=== PATIENT | female | born 1940 | race Caucasian/White ===

== ENCOUNTER 2022-08-04 14:12 | Outpatient (CLI) | payer MEDICARE, BC, SELFPAY ==
[2022-08-04 17:28] LABS: Albumin* 4.3 g/dL (3.3-5.0); Chloride* 102 mmol/L (96-114)
[2022-08-04 17:29] LABS: Potassium* 4.1 mmol/L (3.6-5.1); Sodium* 138 mmol/L (135-149)
[2022-08-04 17:31] LABS: Alanine Aminotransferase* 17 U/L (4-35); Alkaline Phosphatase* 81 U/L (40-150); Aspartate Amino Transferase* 26 U/L (12-35); Bilirubin Total* 0.4 mg/dL (0.1-1.5); Blood Urea Nitrogen* 24 mg/dL (7-30); Carbon Dioxide* 31 mmol/L (20-32); Cholesterol* 177 mg/dL (90-199); Creatinine* 0.9 mg/dL (0.5-1.5); Estimated Glomerular Filt Rate 64 ml/min; Glucose* 101 mg/dL (60-115); Total Protein* 6.7 g/dL (6.0-8.3); Triglycerides* 93 mg/dL (40-149)
[2022-08-04 17:32] LABS: Calcium* 8.9 mg/dL (8.4-10.6); HDL Cholesterol* 80 mg/dL (>=50); LDL Cholesterol Calculated 78 mg/dL (<100)
[2022-08-04 17:49] LABS: Vitamin D 25 Hydroxy* 41 ng/mL (30-80)
[2022-08-04 18:23] LABS: Vitamin B12* 244 pg/mL (243-894)
== END 2022-08-04 14:13 | disposition home or self-care (01) ==
PROVIDERS: PCP Family Medicine; Visit Provider Family Medicine
DX: R53.83 Other fatigue (principal); E78.5 Hyperlipidemia, unspecified; R41.3 Other amnesia; M81.0 Age-related osteoporosis without current pathological fracture; R10.9 Unspecified abdominal pain; G35 Multiple sclerosis; Z13.0 Encounter for screening for diseases of the blood and blood-forming organs and certain disorders involving the immune mechanism
CPT/HCPCS: 80053; 80061; 82306; 82607; 82728; 84443

== ENCOUNTER 2022-10-13 13:21 | Outpatient (CLI) | payer MEDICARE, BC, SELFPAY ==
[2022-10-13 18:52] LABS: Vitamin B12* 930 pg/mL (243-894)
== END 2022-10-13 13:22 | disposition home or self-care (01) ==
LOC: NFLDREF 13:23
PROVIDERS: PCP Family Medicine; Visit Provider Family Medicine
DX: E53.8 Deficiency of other specified B group vitamins (principal)
CPT/HCPCS: 82607

== ENCOUNTER 2022-10-31 10:00 | Outpatient (RCR) | payer SELFPAY | END 2022-12-06 16:23 | disposition home or self-care (01) | LOC: MOW 10:00 | PROVIDERS: PCP Family Medicine; Visit Provider Family Medicine | DX: Z76.0 Encounter for issue of repeat prescription (principal) | CPT/HCPCS: S5170 ==

== ENCOUNTER 2023-02-21 11:15 | Outpatient (RCR) | payer MEDICARE, BC, SELFPAY ==
--- NOTE | 2023-02-21 11:43 | PT.OP2DDNX ---
PT [place] [facility] Discharge Summary PT [facility] 2nd Diag Daily Note Start: 01/17/23 12:54 Freq: Status: Active Protocol: Document 02/21/23 11:17 HEVER (Rec: 02/21/23 11:42 HEVER [id number]) E-signed By April Calvert, PT PT OP 2nd Diagnosis Daily Note Visit Information Note Type Discharge Note Visit Number 6 Insurance Information Insurance Name Medicare B,Workman's Comp, [employer] Insurance Information/Comments MEDICARE/UCARE Medical Diagnosis BALANCE DISTURBANCE Treating Diagnosis UNSTEADINESS ON FEET WEAKNESS Subjective Subjective PATIENT STATES, WE HAVE BEEN TRYING TO WALK MORE BUT THE AIR HAS BEEN GOOD. Home Exercise Home Exercise Compliance Compliant Home Exercise Reviewed Yes Objective Other/Pertinent Objective POSTURE: FWD HEAD, INCREASED THORACIC KYPHOSIS UPPER QUARTER SCREEN: REFLEX: 3+ BILATERAL BICEPS, 2 + RADIOBRACHIALIS CERVICAL ROM: WFL SHOULDER ROM: WFL SHOULDER MMT: FLEX- 4-/5 ABD- 4-/5 EXT- 4/5 ER- 4-/5 IR - 4/5 CRANIAL NERVES: UNREMARKABLE LOWER QUARTER SCREEN: REFLEX: LEFT PAT TEN 1+, RIGHT PAT TEN 2+, B ACHILLES 2+ BLE ROM: WFL BLE MMT:4/5 GLOBALLY Functional Test Performed & Score TU.4; 02/07/23 :10.7; DE LEÓN/56;02/07/23 30/56; 37/56 30 SEC STS: 7; 02/07/23 8; 8 Treatment Precautions/Contraindications PATIENT HAS MODERATE COGNITIVE DEFICIT; PATIENT HAS A MILD FORM OF MS Patient Instructed in Risks/Benefits Yes Therapeutic Activity Therapeutic Activity Minutes (minutes) 30 Therapeutic Activities Comments BIKE 5MIN LEVEL 4 SEATED HR/TR X 1MIN SEATED KNEE EXT R/L X1 MIN EA SEATED MARCHING X 1MIN STS X 10 STDG HR X 15 STDG HIP ABD R/L X 15 STDG MARCHING X 15 Neuromuscular Re-Ed Neuromuscular Reeducation Minutes ( 15 minutes) Neuromuscular Reeducation Comments MODIFIED TANDEM WALKING SIDE STEP R/L STATIC STAND ON FOAM EO->EO/ NBOS ->EC 10BOS STEP FWD/BKWD STEP SIDE R/L Treatment Minutes Timed Code Treatment Minutes 45 Total Treatment Time 45 Billing Units Neuromuscular Reeducation Units 1 Therapeutic Exercise Units 2 Plan of Care Physical Therapy Goals 1. PATIENT WILL REDUCE HER RISK FOR FALLS EVIDENCED BY AN IMPROVEMENT FROM TO 30 IN 4-6 WEEKS. GOAL MET 2. PATIENT WILL IMPROVE HER FUNCTIONAL MOBILITY WITHIN HER HOME AND WITH IN THE COMMUNITY BY INCREASING 30 SEC STS FROM 7 TO 9 W/O ARMS IN 4 -6 WEEKS; GOAL MET 02/07/23 3. PATIENT WILL DEMONSTRATED TOLERANCE FOR AMB FOR EXERCISE WITH SBA PROVIDED FROM HER SPOUSE BY RETURNING TO AMB DAILY FOR 15 MIN IN 4-6 WEEKS. PARTIALLY MET 02/07/23 4. PATIENT WILL DEMONSTRATE COMPLIANCE WITH HER HEP WITH THE ASSISTANCE OF HER SPOUSE IN 4-6 WEEKS. GOAL MET 02/07/23 5. UPDATED DE LEÓN GOAL FROM TO Daily Plan of Care Discharge Daily Plan of Care Comments DISCHARGE TODAY TO CARE OF SPOUSE AND FAMILY WITH HEP Recertification Information Provider Signature Shows Agreement With POC & Medical Necessity Discharge Note Discharge Summary PATIENT IS AN [address] NEWTON EASLEY REFERRED TO PHYSICAL THERAPY D/T BALANCE DISTURBANCE. PMHX INCLUDES BUT NOT LIMITED TO RECENT DX OF ALZHEIMER'S DEMENTIA, H/O CAROTID STENOSIS , HLD, HTN, H/O FALLS, ANXIETY , OSTEOPOROSIS, MILD MS (1974) . SHE LIVES WITH HER SPOUSE IN GROUP HOME CONDO/INDEPENDENT LIVING WITH AN ELEVATOR TO ACCESS HER CONDO WITH AN AREA TO WALK IN THE LOWER PART OF HER BLDG. SHE HAS PARTICIPATED IN A COMPREHENSIVE PROGRAM TO ADDRESS GENERALIZED STRENGTHENING OF HER TRUNK AND BLE, GT ON A VARIETY OF SURFACES, AND BALANCE TRAINING . SHE HAS IMPROVED SIGNIFICANTLY SINCE HER INITIAL ASSESSMENT WITH HER FUNCTIONAL BALANCE EVIDENCED BY A SCORE OF 10SEC ON HER TUG TODAY FROM 14SEC AND 37/56 ON THE DE LEÓN BALANCE EXAM FROM . ADDITIONALLY, SHE IS CAPABLE OF AMB COMFORTABLY AT A GAIT SPEED OF 2.23FT/SEC FROM 1.66FT FURTHER DEMONSTRATING A REDUCED RISK FOR FALLS AND ALLOWING HER TO SAFELY AMB WITH HER SPOUSE OUTSIDE HER BLDG THE WEATHER PERMITS. SHE HAS MET ALL GOALS FOR PHYSICAL THERAPY AND PERFORMS HER HEP DAILY WITH HER SPOUSE. THEY HAVE RECENTLY BEEN ABLE TO RETURN TO [place]ATHER THAN WATCHING ON THE TV AND HAVE BEEN ABLE TO AMB OUTSIDE AROUND THE BLDG. NEITHER SPOUSE NOR THE PATIENT HAVE ANY QUESTIONS AT THIS TIME AND ARE IN AGREEMENT WITH DISCHARGE FROM [facility] TODAY. Date of First Visit for Therapy 01/17/23 Date of Last Visit for Therapy 02/21/23 Initial Primary Functional Limitations BALANCE Initial Pain Level N/A Interventions Provided During Treatment Gait Training,Neuromuscular Re -Ed,Therapeutic Activities, Therapeutic Exercise Recommendations/Reason for Discharge Met All Therapy Goals Discharge Instructions PATIENT WILL CONTINUE WITH HER HEP WITH HER SPOUSE AND F/U WITH HER REGULARLY SCHEDULED MD APPTS
== END 2023-03-08 10:18 | disposition home or self-care (01) ==
PROVIDERS: PCP Family Medicine; Visit Provider Family Medicine
DX: R26.89 Other abnormalities of gait and mobility (principal); Z51.89 Encounter for other specified aftercare
CPT/HCPCS: 97110; 97112; 97116; 97163

== ENCOUNTER 2024-01-29 12:50 | Outpatient (REF) | payer MEDICARE, BC, SELFPAY ==
--- OUTSIDE RECORDS SUMMARY | 2024-01-29 12:54 | XMS_ITS | Clinical Summary ---
Author Name Unknown Organization [facility] Address [place], [place] [address] Care Team Providers Care Sql Analyst Name Role Phone Arlet Bueno DO Primary Care Provider [phone] Allergies Active Allergy Reactions Criticality Noted Date Comments Meperidine Nausea Only 04/21/2010 Medications Medication Sig Dispensed Refills Start Date End Date Status Tobradex ophthalmic ointment APPLY A SMALL AMOUNT INTO THE INFERIOR CONJUNCTIVAL SAC IN BOTH EYES BEFORE BEDTIME 02/06/2023 Active prednisoLONE acetate 1% ophthalmic (ECONOPRED PLUS, PRED FORTE, OMNIPRED) suspension INSTILL 1 DROP INTO BOTH EYES EVERY OTHER HOUR WHILE AWAKE; SHAKE BEFORE USE 02/06/2023 Active neomycin-polymyxi n-dexAMETHasone (MAXITROL) ophthalmic ointment APPLY A SMALL AMOUNT INTO THE INFERIOR CONJUNCTIVAL SAC(S) IN BOTH EYES BEFORE BEDTIME 02/07/2023 Active escitalopram oxalate (LEXAPRO) 10 mg tablet Take 10 mg by mouth once daily. 02/06/2023 02/06/2024 Active donepeziL (ARICEPT) 10 mg tablet TAKE ONE-HALF TABLET BY MOUTH DAILY FOR 2 WEEKS. IF SYMPTOMS HAVE NOT IMPROVED, INCREASE TO 1 TABLET DAILY. 01/31/2023 Active cyanocobalamin (VITAMIN B12) 1,000 mcg tablet TAKE ONE TABLET(1000MG) BY MOUTH EVERY DAY 08/07/2022 Active atorvastatin (LIPITOR) 10 mg tablet Take 10 mg by mouth at bedtime. 12/05/2022 Active amLODIPine (NORVASC) 5 mg tablet Take 5 mg by mouth two times daily. 12/21/2022 Active atropine (ISOPTO ATROPINE) 1 % ophthalmic solution INSTILL ONE DROP INTO BOTH EYES 3 TIMES PER DAY 02/06/2023 Active alendronate (FOSAMAX) 70 mg tablet Take 70 mg by mouth. 12/22/2022 Active aspirin chewable 81 mg chewable tablet Chew 1 Tablet (81 mg) by mouth once daily with a meal. 0 02/09/2023 Active calcium carbonate (CALTRATE) 600 mg calcium (1,500 mg) tablet Take 1 Tablet (600 mg) by mouth two times daily with meals. 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 Osteoporosis 02/09/2023 HTN (hypertension) 02/09/2023 Family History Medical History Relation Name Comments Good Health Father Asthma Mother Asthma Sister 1 Noleene Brain cancer Sister 2 Waiva Glioblastoma Kidney disease Sister 2 Waiva Required kidn ey replacement Relation Name Status Comments Daughter 1 Alive Daughter 2 Alive Father Mother Sister 1 Noleene Sister 2 Waiva Social History Tobacco Use Types Packs/Day Years Used Date Smoking Tobacco: Never Assessed Social Connections Answer Date Recorded Frequency of Communication with Friends and Fami ly Not on file 02/09/2023 Sex and Gender Information Value Date Recorded Sex Assigned at Not on file Gender Identity Not on file Sexual Orientation Not on file Obstetrics History Last Filed Vital Signs Vital Sign Reading Time Taken Comments Blood Pressure 125/65 02/09/2023 11:38 AM CDT Pulse 69 02/09/2023 11:38 AM CDT Temperature - - Respiratory Rate - - Oxygen Saturation 96% 02/09/2023 11:38 AM CDT Inhaled Oxygen Concentration - - Weight 46 kg (101 lb 8 oz) 02/09/2023 11:38 AM C DT Height - - Body Mass Index - - Plan of Treatment Health Maintenance Due Date Last Done Comments Tdap 1951 Depression screening for age 12+ 1952 BMI (ht and wt on same day) for age 18+ 1958 Tetanus booster 1960 Zoster (shingles) series for age 50+ (1 of 2) 06/16/19 90 DEXA/DXA scan for age 65+ 2005 Medicare Wellness for age 65+ 2005 Pneumococcal series for age 65+ (1 of 1 - PCV) 005 COVID-19 vaccine series (2 - 2022-24 season) 3 07/04/2022 Influenza for age 65+ 05/25/2024 Advance Directives Documents on File Type Date Recorded Patient Chemotherapist Expl anation POLST 06/19/2023 Care Teams Sql Analyst Relationship Specialty Start Date End Date Arlet [place] [address] PCP - General Family Practice 01/22/23
[2024-01-29 14:16] LABS: Basophils Absolute Auto 0.01 K/uL (0.00-0.30); Basophils Percent Auto 0.2 % (0.0-3.0); Eosinophils Absolute Auto 0.19 K/uL (0.00-0.50); Eosinophils Percent Auto 3.5 % (0.0-7.0); Hematocrit 45.3 % (33.0-51.0); Hemoglobin* 14.5 gm/dL (12.0-16.0); Immature Granulocytes Abs Auto 0.01 K/uL (0.00-0.30); Immature Granulocytes Pct Auto 0.2 %; Lymphocytes Absolute Auto 1.91 K/uL (0.90-2.90); Lymphocytes Percent Auto 35.4 % (20-44); Mean Corpuscular HGB Conc 32 gm/dL (32-36); Mean Corpuscular Hemoglobin 30 pg (26-34); Mean Corpuscular Volume 93 fL (80-100); Monocytes Percent Auto 12.8 % (0.0-11.0); Neutrophils Absolute Auto 2.59 K/uL (1.7-7.0); Neutrophils Percent Auto 47.9 % (42.0-72.0); Platelet Count* 194 K/uL (140-440); RDW Coefficient of Variation % 12.8 % (11.5-15.5); Red Blood Count 4.87 m/uL (4.00-5.20)
[2024-01-29 14:21] LABS: Slide Review Reflex No
[2024-01-29 16:59] LABS: Chloride* 104 mmol/L (96-114); Potassium* 4.7 mmol/L (3.6-5.1); Sodium* 139 mmol/L (135-149)
[2024-01-29 17:02] LABS: Anion Gap 4 mEq/L (7-15); Blood Urea Nitrogen* 24 mg/dL (7-30); Carbon Dioxide* 31 mmol/L (20-32); Creatinine* 0.7 mg/dL (0.5-1.5); Estimated Glomerular Filt Rate 86 ml/min; Glucose* 73 mg/dL (60-115)
[2024-01-29 17:03] LABS: Calcium* 8.9 mg/dL (8.4-10.6)
== END 2024-01-29 12:51 | disposition home or self-care (01) ==
LOC: NPINS 12:50
PROVIDERS: PCP Family Medicine; Visit Provider Family Medicine
DX: I10 Essential (primary) hypertension (principal)
CPT/HCPCS: 80048; 85025

== ENCOUNTER 2025-01-20 11:05 | Outpatient (REF) | payer BC, SELFPAY ==
[2025-01-20 12:36] LABS: Chloride* 106 mmol/L (96-114); Sodium* 139 mmol/L (135-149)
[2025-01-20 12:37] LABS: Potassium* 4.6 mmol/L (3.6-5.1)
[2025-01-20 12:39] LABS: Blood Urea Nitrogen* 18 mg/dL (7-30); Creatinine* 0.7 mg/dL (0.5-1.5); Estimated Glomerular Filt Rate 85 ml/min
[2025-01-20 12:40] LABS: Anion Gap 8 mEq/L (7-15); Calcium* 8.7 mg/dL (8.4-10.6); Carbon Dioxide* 25 mmol/L (20-32); Glucose* 87 mg/dL (60-115)
== END 2025-01-20 11:06 | disposition home or self-care (01) ==
LOC: NPINS 11:05
PROVIDERS: PCP Family Medicine; Visit Provider Family Medicine
DX: I10 Essential (primary) hypertension (principal)
CPT/HCPCS: 80048